=== PATIENT | female | born 1975 | race American Indian/Alaskan Native ===

== ENCOUNTER 2020-07-24 01:24 | Outpatient (CLI) | payer OTHER ==
[2020-07-24 01:56] VITALS: BP 139/72
== END 2020-07-24 02:50 | disposition home or self-care (01) ==
LOC: TRG 01:24 → APU 01:27 → TRG 02:50
PROVIDERS: ATTEND Obstetrics & Gynecology
DX: O42.913 Preterm premature rupture of membranes, unspecified as to length of time between rupture and onset of labor, third trimester (principal); O09.523 Supervision of elderly multigravida, third trimester; Z3A.33 33 weeks gestation of pregnancy
CPT/HCPCS: 59025

== ENCOUNTER 2020-08-24 18:03 | Outpatient (CLI) | payer OTHER ==
[2020-08-24 18:34] VITALS: BP 134/72
== END 2020-08-24 20:20 | disposition home or self-care (01) ==
LOC: TRG 18:03 → APU 18:06 → TRG 20:20
PROVIDERS: ATTEND Obstetrics & Gynecology
DX: O42.913 Preterm premature rupture of membranes, unspecified as to length of time between rupture and onset of labor, third trimester (principal); Z3A.39 39 weeks gestation of pregnancy
CPT/HCPCS: 36415; 59025; 84112

== ENCOUNTER 2020-08-31 11:35 | Outpatient (CLI) | payer MEDICAID ==
[2020-08-31 12:35] VITALS: BP 118/65
[2020-08-31] MEDS ORDERED: LACTATED RINGERS 1,000 ML ONE (13:15)
== END 2020-08-31 15:16 | disposition home or self-care (01) ==
LOC: TRG 11:35 → APU 11:37 → TRG 15:16
PROVIDERS: ATTEND Obstetrics & Gynecology
DX: O47.03 False labor before 37 completed weeks of gestation, third trimester (principal); J45.909 Unspecified asthma, uncomplicated; Z3A.40 40 weeks gestation of pregnancy
CPT/HCPCS: 59025; J7120; 96360